=== PATIENT | female | born 1980 | race Caucasian/White ===

== ENCOUNTER → 2020-04-14 13:02 | Outpatient (BNVA) | payer MEDICARE, SELFPAY | PROVIDERS: Family Provider Nurse Practitioner Family; Visit Provider Podiatrist Foot & Ankle Surgery | DX: M79.671 Pain in right foot (principal); Z46.89 Encounter for fitting and adjustment of other specified devices; M72.2 Plantar fascial fibromatosis | CPT/HCPCS: 73630; 97760; L4397 ==

== ENCOUNTER 2020-04-14 15:15 | Outpatient (CLI) | payer MEDICARE, SELFPAY | END 2020-04-14 15:16 | disposition home or self-care (01) | LOC: SPT 15:16 | PROVIDERS: Family Provider Nurse Practitioner Family; Visit Provider Podiatrist Foot & Ankle Surgery | DX: Z46.89 Encounter for fitting and adjustment of other specified devices (principal); M72.2 Plantar fascial fibromatosis | CPT/HCPCS: 97760; L4397 ==